=== PATIENT | male | born 2000 | race Caucasian/White ===

== ENCOUNTER 2023-01-18 14:14 | Inpatient (IN) | payer MEDICARE, OTHER, SELFPAY ==
[2023-01-18 14:58] LABS: #Basophils 0.1 10x3/uL (0.0-0.2); #Eosinphils 0.1 10x3/uL (0.0-0.5); #Monocytes 0.4 10x3/uL (0.0-1.1); %Basophils 1.1 % (0.0-2.0); %Eosinophils 1.1 % (0.0-6.0); %Lymphocytes 14.6 % (18.0-47.0); Hematocrit 32.9 % (38.8-50.0); Hemoglobin 10.7 g/dL (13.5-17.5); Mean Corpuscular HGB CONC 32.5 g/dL (32.0-36.0); Mean Corpuscular Hemoglobin 27.9 pg (27.0-33.0); Mean Corpuscular Volume 85.7 fl (81.2-95.1); Mean Platelet Volume 10.5 fl (7.4-10.4); Platelet Count 249 10x3/uL (150-450); RBC Distribution Width 15.8 % (11.5-14.5); Red Blood Cell (RBC) Count 3.84 10x6/uL (4.32-5.72); White Blood Cell (WBC) Count 5.3 10x3/uL (3.5-10.5)
[2023-01-18 15:10] LABS: ALT (SGPT) Less than 7 U/L (8-55); AST (SGOT) 8 U/L (5-34); Albumin 4.7 g/dL (3.5-5.0); Alkaline Phosphatase 102 U/L (40-110); Anion Gap 21 mmol/L (10-20); BUN (Urea Nitrogen) 26 mg/dL (8.9-20.6); Bilirubin, Total 0.6 mg/dL (0.2-1.2); Calc. Creatinine Clearance 0 mL/min (70-130); Calcium 9.5 mg/dL (7.8-10.44); Carbon Dioxide 29 mmol/L (22-29); Chloride 95 mmol/L (98-107); Estimated GFR 8; Globulin 3.6 g/dL (2.4-3.5); Glucose 95 mg/dL (70-105); Lipase 18 U/L (8-78); Potassium 4.6 mmol/L (3.5-5.1); Protein, Total 8.3 g/dL (6.0-8.3); Sodium 140 mmol/L (136-145)
[2023-01-18] MEDS ORDERED: fentaNYL 50 mcg/mL 1 mL Vial ONE ×2 (15:19→19:41)
[2023-01-18] MEDS ORDERED: Ondansetron PF 4 MG/2 ML Vial ONE ×2 (16:07→19:41)
[2023-01-18 16:22] LABS: Troponin I 0.038 ng/mL (< 0.028)
[2023-01-18] MEDS ORDERED: cloNIDine 0.1 MG TAB ONE ×2 (16:26→19:41)
[2023-01-18] MEDS ORDERED: diphenhydrAMINE 50 MG/ML VIAL ONE (16:26)
[2023-01-18 16:28] LABS: SARS-CoV-2 NAA Rapid Test Not Detected (NotDetected)
[2023-01-18 17:47] LABS: Troponin I 0.022 ng/mL (< 0.028)
[2023-01-18] MEDS ORDERED: Ondansetron PF 4 MG/2 ML Vial IVP PRN (19:58)
[2023-01-18] MEDS ORDERED: Guaifenesin DM 100-10/5 ML UDCUP PO PRN (19:58)
[2023-01-18] MEDS ORDERED: Senokot S 8.6-50 MG TAB PO PRN (19:58)
[2023-01-18] MEDS ORDERED: Promethazine HCl 12.5 MG, Admixture Fee 1 EACH in Sodium Chloride 0.9% 50 ML IVPB PRN (20:00)
[2023-01-18] MEDS ORDERED: Nitroglycerin 0.4 MG TAB (25 Tab Bottle) SL PRN (20:04)
[2023-01-18] MEDS ORDERED: Nitroglycerin 2% Ointment 1 INCH/1 GM Packet TOP SCH (20:15)
[2023-01-18] MEDS ORDERED: Famotidine/PF 20 mg/2ml Vial SLOW IVP SCH (20:15)
[2023-01-18 21:33] VITALS: BMI 21.5
[2023-01-18] MEDS: hydrALAZINE 20 MG/ML VIAL SLOW IVP PRN (22:09)
[2023-01-18] MEDS: Atorvastatin Calcium 40 MG TAB PO SCH (22:14)
[2023-01-18] MEDS: Acetaminophen 325 MG TAB PO PRN (22:19)
[2023-01-18] MEDS: Heparin 5,000 UNITS/ML VIAL SC SCH (22:34)
[2023-01-18 22:50] LABS: Troponin I 0.032 ng/mL (< 0.028)
[2023-01-19 05:12] LABS: #Basophils 0.1 10x3/uL (0.0-0.2); #Eosinphils 0.2 10x3/uL (0.0-0.5); #Monocytes 0.6 10x3/uL (0.0-1.1); #Neutrophils 3.1 10x3/uL (1.5-8.4); %Basophils 0.9 % (0.0-2.0); %Lymphocytes 27.7 % (18.0-47.0); %Monocytes 10.9 % (0.0-10.0); %Neutrophils 56.3 % (40.0-75.0); Hematocrit 31.4 % (38.8-50.0); Hemoglobin 9.7 g/dL (13.5-17.5); Mean Corpuscular HGB CONC 30.9 g/dL (32.0-36.0); Mean Corpuscular Hemoglobin 27.2 pg (27.0-33.0); Mean Platelet Volume 10.4 fl (7.4-10.4); Platelet Count 249 10x3/uL (150-450); RBC Distribution Width 15.9 % (11.5-14.5); Red Blood Cell (RBC) Count 3.57 10x6/uL (4.32-5.72); White Blood Cell (WBC) Count 5.5 10x3/uL (3.5-10.5)
[2023-01-19] MEDS: hydrALAZINE 20 MG/ML VIAL SLOW IVP PRN ×2 (05:20→14:28)
[2023-01-19 05:21] LABS: Anion Gap 25 mmol/L (10-20); BUN (Urea Nitrogen) 35 mg/dL (8.9-20.6); Calc. Creatinine Clearance 9 mL/min (70-130); Carbon Dioxide 26 mmol/L (22-29); Chloride 94 mmol/L (98-107); Estimated GFR 6; Glucose 71 mg/dL (70-105); Sodium 139 mmol/L (136-145)
[2023-01-19] MEDS ORDERED: Calcium Gluc 4.6 MEQ/10 ML (100 MG/ML) SLOW IVP SCH (06:15)
[2023-01-19] MEDS ORDERED: LOKELMA 10 GM PACKET PO SCH (06:30)
[2023-01-19] MEDS: Furosemide 40 MG TAB PO SCH (06:56)
[2023-01-19] MEDS: busPIRone HCl 5 MG TAB PO SCH (08:32)
[2023-01-19] MEDS: NIFEdipine XL 60 MG TAB PO SCH (08:32)
[2023-01-19] MEDS: Aspirin 81 mg Enteric Coated Tablet PO SCH (08:34)
[2023-01-19] MEDS: Sevelamer Carbonate 800 MG TAB PO SCH ×3 (08:34→18:02)
[2023-01-19] MEDS ORDERED: NIFEdipine XL 90 MG TAB PO SCH (09:00)
[2023-01-19 09:08] LABS: HBSAg Index 0.19 S/CO (0-0.99); Hep B Surf Ag Non-Reactive S/CO (NonReactive)
[2023-01-19] MEDS ORDERED: Ondansetron PF 4 MG/2 ML Vial IVP PRN (09:49)
[2023-01-19] MEDS: Heparin 5,000 UNITS/ML VIAL SC SCH ×3 (09:59→21:01)
[2023-01-19 13:26] LABS: Hep B Core Total Ab Non-Reactive (NonReactive)
[2023-01-19 13:38] LABS: Hep C IgG Ab Non-Reactive S/CO (NonReactive); Hep C Index 0.07 S/CO (0-0.79)
[2023-01-19 13:40] LABS: HBSAB Concentration 440.69 mIU/mL; Hep B Surf AB Reactive (NonReactive)
[2023-01-19] MEDS: Acetaminophen 325 MG TAB PO PRN (14:28)
[2023-01-19] MEDS ORDERED: diphenhydrAMINE 50 MG/ML VIAL IVP PRN (15:00)
[2023-01-19] MEDS: Folic Acid/Vit B Comp W-C PO SCH (18:00)
[2023-01-19] MEDS: Atorvastatin Calcium 40 MG TAB PO SCH (20:54)
[2023-01-20 04:18] LABS: #Basophils 0.1 10x3/uL (0.0-0.2); #Eosinphils 0.5 10x3/uL (0.0-0.5); #Neutrophils 4.3 10x3/uL (1.5-8.4); %Basophils 1.1 % (0.0-2.0); %Eosinophils 6.5 % (0.0-6.0); %Lymphocytes 22.7 % (18.0-47.0); %Monocytes 12.7 % (0.0-10.0); %Neutrophils 56.7 % (40.0-75.0); Hematocrit 32.9 % (38.8-50.0); Hemoglobin 10.5 g/dL (13.5-17.5); Mean Corpuscular HGB CONC 31.9 g/dL (32.0-36.0); Mean Corpuscular Hemoglobin 28.2 pg (27.0-33.0); Mean Corpuscular Volume 88.4 fl (81.2-95.1); Mean Platelet Volume 10.6 fl (7.4-10.4); Platelet Count 263 10x3/uL (150-450); RBC Distribution Width 15.9 % (11.5-14.5); Red Blood Cell (RBC) Count 3.72 10x6/uL (4.32-5.72); White Blood Cell (WBC) Count 7.5 10x3/uL (3.5-10.5)
[2023-01-20 04:33] LABS: ALT (SGPT) 7 U/L (8-55); AST (SGOT) 9 U/L (5-34); Albumin 4.4 g/dL (3.5-5.0); Alkaline Phosphatase 88 U/L (40-110); Anion Gap 18 mmol/L (10-20); BUN (Urea Nitrogen) 25 mg/dL (8.9-20.6); Bilirubin, Total 0.5 mg/dL (0.2-1.2); Calc. Creatinine Clearance 13 mL/min (70-130); Calcium 9.5 mg/dL (7.8-10.44); Carbon Dioxide 32 mmol/L (22-29); Chloride 94 mmol/L (98-107); Estimated GFR 8; Globulin 3.2 g/dL (2.4-3.5); Glucose 80 mg/dL (70-105); Magnesium 2.4 mg/dL (1.6-2.6); Potassium 5.7 mmol/L (3.5-5.1); Protein, Total 7.6 g/dL (6.0-8.3); Sodium 138 mmol/L (136-145)
[2023-01-20] MEDS: hydrALAZINE 20 MG/ML VIAL SLOW IVP PRN (04:37)
[2023-01-20 04:41] LABS: Troponin I 0.035 ng/mL (< 0.028)
[2023-01-20] MEDS: Furosemide 40 MG TAB PO SCH (06:50)
[2023-01-20] MEDS ORDERED: LOKELMA 10 GM PACKET PO SCH (09:30)
[2023-01-20] MEDS ORDERED: hydrALAZINE 25 MG TAB PO SCH (09:30)
[2023-01-20] MEDS: hydrALAZINE 25 MG TAB PO SCH ×2 (10:48→20:58)
[2023-01-20] MEDS: Sevelamer Carbonate 800 MG TAB PO SCH ×3 (10:49→18:03)
[2023-01-20] MEDS: Aspirin 81 mg Enteric Coated Tablet PO SCH (10:49)
[2023-01-20] MEDS: Folic Acid/Vit B Comp W-C PO SCH (10:49)
[2023-01-20] MEDS: busPIRone HCl 5 MG TAB PO SCH (10:49)
[2023-01-20] MEDS: NIFEdipine XL 60 MG TAB PO SCH (10:50)
[2023-01-20] MEDS: Heparin 5,000 UNITS/ML VIAL SC SCH ×3 (10:51→20:59)
[2023-01-20] MEDS ORDERED: hydrOXYzine 25 MG TAB PO PRN (12:40)
[2023-01-20] MEDS ORDERED: hydrALAZINE 20 MG/ML VIAL SLOW IVP SCH (13:30)
[2023-01-20 15:03] LABS: Phosphorus 4.6 mg/dL (2.3-4.7)
[2023-01-20 15:04] LABS: Anion Gap 18 mmol/L (10-20); BUN (Urea Nitrogen) 11 mg/dL (8.9-20.6); Calc. Creatinine Clearance 23 mL/min (70-130); Calcium 10.2 mg/dL (7.8-10.44); Carbon Dioxide 29 mmol/L (22-29); Chloride 96 mmol/L (98-107); Estimated GFR 16; Glucose 88 mg/dL (70-105); Magnesium 2.2 mg/dL (1.6-2.6); Potassium 4.3 mmol/L (3.5-5.1); Sodium 139 mmol/L (136-145)
[2023-01-20 15:10] LABS: Troponin I 0.019 ng/mL (< 0.028)
[2023-01-20 20:59] VITALS: BP 174/88
[2023-01-20] MEDS: Atorvastatin Calcium 40 MG TAB PO SCH (20:59)
[2023-01-20 22:58] VITALS: TEMP 98.1
== END 2023-01-20 21:00 | disposition home or self-care (01) | DRG 640 ==
LOC: CSHERS 14:14 → CSHTELE 21:26 → OBSVTOIN 01-19 16:21
PROVIDERS: ADMIT Student in an Organized Health Care Education/Training Program; ATTEND Internal Medicine
PROC: 5A1D70Z Performance of Urinary Filtration, Intermittent, Less than 6 Hours Per Day (ICD-10-PCS; principal; 2023-01-19)
DX: E87.70 Fluid overload, unspecified (principal); N18.6 End stage renal disease; T86.11 Kidney transplant rejection; I12.0 Hypertensive chronic kidney disease with stage 5 chronic kidney disease or end stage renal disease; I16.1 Hypertensive emergency; E78.5 Hyperlipidemia, unspecified; Y83.0 Surgical operation with transplant of whole organ as the cause of abnormal reaction of the patient, or of later complication, without mention of misadventure at the time of the procedure; F41.9 Anxiety disorder, unspecified; F17.210 Nicotine dependence, cigarettes, uncomplicated; I16.0 Hypertensive urgency; D63.1 Anemia in chronic kidney disease; E87.5 Hyperkalemia; E83.39 Other disorders of phosphorus metabolism; Z88.5 Allergy status to narcotic agent; Z82.49 Family history of ischemic heart disease and other diseases of the circulatory system; Z90.89 Acquired absence of other organs; Z99.2 Dependence on renal dialysis; Z98.890 Other specified postprocedural states; Z89.411 Acquired absence of right great toe; Z79.82 Long term (current) use of aspirin; I25.2 Old myocardial infarction; Z79.899 Other long term (current) drug therapy; Z88.0 Allergy status to penicillin; Z88.6 Allergy status to analgesic agent; Z88.8 Allergy status to other drugs, medicaments and biological substances; Z91.158 Patient's noncompliance with renal dialysis for other reason; Y83.8 Other surgical procedures as the cause of abnormal reaction of the patient, or of later complication, without mention of misadventure at the time of the procedure
CPT/HCPCS: 36415; 71045; 71275; 80048; 80053; 83690; 83735; 83880; 84100; 84443; 84484; 85025; 86704; 87633; 90935; 93005; 93010; 93306; 94760; 96374; 96375; 96376; 97139; G0257; G0378; J0360; J0612; J1200; J1644; J2405; J2550; J3010; S0028; U0002

== ENCOUNTER 2023-10-05 18:55 | Emergency (ER) | payer MEDICARE ==
[2023-10-05 20:54] LABS: #Basophils 0.06 10x3/uL (0.0-0.2); #Monocytes 0.56 10x3/uL (0.0-1.1); #Neutrophils 4.12 10x3/uL (1.5-8.4); %Lymphocytes 16.5 % (18.0-47.0); %Monocytes 9.2 % (0.0-10.0); Hematocrit 27.9 % (38.8-50.0); Hemoglobin 9.4 g/dL (13.5-17.5); Mean Corpuscular HGB CONC 33.7 g/dL (32.0-36.0); Mean Corpuscular Hemoglobin 28.4 pg (27.0-33.0); Mean Corpuscular Volume 84.3 fl (81.2-95.1); Mean Platelet Volume 9.7 fl (7.4-10.4); Platelet Count 202 10x3/uL (150-450); RBC Distribution Width 17.7 % (11.5-14.5); Red Blood Cell (RBC) Count 3.31 10x6/uL (4.32-5.72); White Blood Cell (WBC) Count 6.1 10x3/uL (3.5-10.5)
[2023-10-05 21:07] LABS: ALT (SGPT) Less than 7 U/L (8-55); AST (SGOT) 10 U/L (5-34); Albumin 4.1 g/dL (3.5-5.0); Alkaline Phosphatase 64 U/L (40-110); Anion Gap 18 mmol/L (10-20); BUN (Urea Nitrogen) 25 mg/dL (8.9-20.6); Bilirubin, Total 0.8 mg/dL (0.2-1.2); CK (CPK) 95 U/L (30-200); Calc. Creatinine Clearance 0 mL/min (70-130); Calcium 9.1 mg/dL (7.8-10.44); Carbon Dioxide 27 mmol/L (22-29); Chloride 97 mmol/L (98-107); Estimated GFR 8; Globulin 3.2 g/dL (2.4-3.5); Glucose 110 mg/dL (70-105); Potassium 4.1 mmol/L (3.5-5.1); Protein, Total 7.3 g/dL (6.0-8.3); Sodium 138 mmol/L (136-145)
[2023-10-05 21:08] LABS: Acetaminophen Less than 10 mcg/mL (10.0-30.0); Alcohol Less than 10.0 mg/dL (Less than 10); Magnesium 2.1 mg/dL (1.6-2.6); Salicylate Less than 8.0 mg/dL (15.0-30.0)
[2023-10-05 21:14] LABS: Troponin I 0.035 ng/mL (< 0.028)
[2023-10-05] MEDS ORDERED: HYDROcodone/Acetaminophen 10/325 mg Tablet ONE (22:19)
== END 2023-10-05 22:25 | disposition home or self-care (01) ==
LOC: CSHERS 18:55
DX: R07.89 Other chest pain (principal); I10 Essential (primary) hypertension
CPT/HCPCS: 71045; 80053; 80307; 82550; 83605; 83735; 83880; 84443; 84484; 85025; 93005